=== PATIENT | female | born 1930 | race Caucasian/White ===

== ENCOUNTER 2017-01-01 14:30 | Emergency (ER) | payer MEDICARE, OTHER ==
[2017-01-01 14:44] VITALS: O2SAT 96
--- NOTE | 2017-01-01 14:57 | ERPHSYRPT ---
- History of Present Illness Time Seen by Provider: 01/01/17 14:47 Source: patient Exam Limitations: no limitations Patient Subjective Stated Complaint: swallowing difficulty Triage Nursing Assessment: states this morning she could swallow her small pills but is unable to swallow her bigger pills or food. denies vomiting 'it just feels like there is something stuck and not letting me swallow anything big '. no recent trauma. able to swallow spit today without diff. daughter in law states she had her esophagus stretched approx 5 yrs ago Physician History: This is an 86-year-old white female with history of macular degeneration diabetes hypercholesterolemia high blood pressure GERD who is legally blind She is brought by her daughter with complaint of difficulty swallowing for 2 weeks. She states she has had progressive problems with swallowing for 2 weeks this morning she had problems swallowing large pills and food she states she is however able to swallow small pills and water. She is not vomiting she has no chest pain. Past medical history includes macular degeneration, diabetes, hypercholesterolemia, GERD, patient is legally blind. She apparently has some problem with her left kidney. Past surgical history includes , cyst in her left breast.patient has had her esophagus dilated in the past. Timing/Duration: other (probable for swallowing for 2 weeks) Severity: moderate (some) Modifying Factors: Improves With: nothing Associated Symptoms: No nausea, No vomiting, No abdominal pain, No shortness of breath, No heartburn, No diaphoresis, No cough, No chills, No chest pain, No fever, No headaches, No loss of appetite, No malaise, No rash, No syncope, No seizure, No weakness Allergies/Adverse Reactions: pregabalin [From Lyrica] Allergy (Verified 01/01/17 14:44) sulfamethoxazole [From Bactrim] Allergy (Verified 01/01/17 14:44) trimethoprim [From Bactrim] Allergy (Verified 01/01/17 14:44) Hx Tetanus, Diphtheria Vaccination/Date Given: Yes Hx Influenza Vaccination/Date Given: No Hx Pneumococcal Vaccination/Date Given: No Immunizations Up to Date: Yes - Review of Systems Constitutional: No Fever, No Chills Eyes: No Symptoms Ears, Nose, & Throat: Other (trouble swallowing), No Ear Pain, No Ear Discharge , No Hearing Changes, No Tinnitus, No Nose Pain, No Nose Congestion, No Nose Discharge, No Sinus Drainage, No Epistaxis, No Mouth Pain, No Mouth Swelling, No Loose Teeth, No Throat Pain, No Throat Swelling, No Hoarse, No Painful Swallowing, No Snoring, No Stridor Respiratory: No Cough, No Dyspnea Cardiac: No Chest Pain, No Edema, No Syncope Abdominal/Gastrointestinal: No Abdominal Pain, No Nausea, No Vomiting, No Diarrhea Genitourinary Symptoms: No Dysuria Musculoskeletal: No Back Pain, No Neck Pain Skin: No Rash Neurological: No Dizziness, No Focal Weakness, No Sensory Changes Psychological: No Symptoms Endocrine: No Symptoms All Other Systems: Reviewed and Negative - Past Medical History Pertinent Past Medical History: Yes ENT History: Macular Degeneration, Other Cardiac History: High Cholesterol, Hypertension Endocrine Medical History: Diabetes Type II GI Medical History: GERD History: Other Other Medical History: legally blind. questionable area to lt kidney--being watched - Past Surgical History Past Surgical History: Yes Female Surgical History: Section Other Surgical History: lt kidney. cyst-rt breast - Social History Smoking Status: Never smoker Exposure to second hand smoke: No Drug Use: none Patient Lives Alone: No - Nursing Vital Signs Nursing Vital Signs: Initial Vital Signs Temperature 97.9 F Temperature Source Oral Pulse Rate 66 Respiratory Rate 16 Blood Pressure [] 143/63 Pain Intensity 0 - Physical Exam General Appearance: no apparent distress, alert Eye Exam: PERRL/EOMI, eyes nml inspection Ears, Nose, Throat Exam: normal ENT inspection, TMs normal, pharynx normal, moist mucous membranes Neck Exam: normal inspection, non-tender, supple, full range of motion Respiratory Exam: normal breath sounds, lungs clear, No respiratory distress Cardiovascular Exam: regular rate/rhythm, normal heart sounds, normal peripheral pulses Gastrointestinal/Abdomen Exam: soft, normal bowel sounds, No tenderness, No mass Back Exam: normal inspection, normal range of motion, No CVA tenderness, No vertebral tenderness Extremity Exam: normal inspection, normal range of motion, pelvis stable Neurologic Exam: alert, oriented x 3, cooperative, normal mood/affect, nml cerebellar function, nml station & gait, sensation nml, No motor deficits Skin Exam: normal color, warm, dry, No rash Lymphatic Exam: No adenopathy SpO2 Interpretation: normal (96%) SpO2: 96 Oxygen Delivery: Room Air - Radiology Exams Other X-ray Interpretation: Discussed w/ radiologist (esophagram: Small sliding hiatal hernia otherwise normal esophagram) Ordered Tests: Active Orders 24 hr Category Date Time Status BARIUM SWALLOW ESOPHOGRAM Stat Exams 01/01/17 15:04 Completed - Progress Progress: improved Progress Note: 01/01/17 16:09 This is an 81-year-old white female who is complaining of problems swallowing for 2 weeks. This morning she was able to swallow small pills and water but not large pills and was having problems swallowing her food. She states that she has a history of having her esophagus dilated in the past. Patient currently does not appear to be in any distress she is able to swallow liquids and is not having problems swallowing her sputum I discussed this with Dr. Waldron who is escalation engineer for Dr. Ferris. He recommended that we obtain an swallowing study. I went ahead and obtain an esophagram which was remarkable for a small sliding hiatal hernia otherwise negative esophagram. Will have patient's family contact Dr. Ferris's office in attempt to obtain an appointment for tomorrow afternoon with Dr. Ferris. - Departure Time of Disposition: 16:11 Departure Disposition: Home Clinical Impression: Swallowing disorder Condition: Fair Critical Care Time: No Referrals: JESSICA MUNGUIA [Primary Care Provider] - SHADI FERRIS [ACTIVE STAFF] - Additional Instructions: Return home. Clear fluids. Follow-up with Dr Munguia or Dr. Ferris tomorrow call his office today to arrange an appointment. Return for acute distress or for severe symptoms.
--- NOTE | 2017-01-01 15:36 | XRAY ---
Indication: Dysphagia for 2 weeks. Single contrast esophagram performed in AP, oblique, and lateral plane. Patient ingested barium without miss swallow or aspiration. Esophagus is normal in course and caliber without stricture, obstruction, filling defect, or mucosal abnormality. Barium freely emptied into the stomach. Small sliding hiatal hernia. No gastroesophageal reflux seen. At the end, patient ingested a barium tablet with water/wastewater engineer which freely emptied into the stomach. Impression: Small sliding hiatal hernia in a otherwise negative esophagram. Approximately 0.4 minute fluoroscopy used.
[2017-01-01 15:57] VITALS: BP 143/63; PULSE 66
== END 2017-01-01 16:23 | disposition home or self-care (01) ==
LOC: ED 14:30
DX: R13.19 Other dysphagia (principal)
CPT/HCPCS: 74220; 99283

== ENCOUNTER 2017-03-15 02:35 | Observation (INO) | payer MEDICARE, OTHER ==
--- NOTE | 2017-03-15 02:43 | ERPHSYRPT ---
- History of Present Illness Time Seen by Provider: 03/15/17 02:38 Source: EMS Exam Limitations: clinical condition Physician History: The patient is an 86-year-old for a code female brought in by ambulance from assisted care living at a local assisted where she was found in bed next her unresponsive during a routine check. She has not responded to voice commands or noxious stimulus. Timing/Duration: today Severity: severe Character of Deficits: other (unresponsive) Baseline/Normal Cognition: alert oriented x 3 Current Cognition: poor alertness (unresponsive) Allergies/Adverse Reactions: pregabalin [From Lyrica] Allergy (Verified 03/15/17 03:05) sulfamethoxazole [From Bactrim] Allergy (Verified 03/15/17 03:05) trimethoprim [From Bactrim] Allergy (Verified 03/15/17 03:05) Hx Tetanus, Diphtheria Vaccination/Date Given: Yes Hx Influenza Vaccination/Date Given: No Hx Pneumococcal Vaccination/Date Given: No - Review of Systems Constitutional: Other (unresponsive) Respiratory: Other (no respiratory effort) Neurological: Other (unresponsive) - Past Medical History Pertinent Past Medical History: Yes ENT History: Macular Degeneration, Other Cardiac History: High Cholesterol, Hypertension Endocrine Medical History: Diabetes Type II GI Medical History: GERD History: Other Other Medical History: legally blind. questionable area to lt kidney--being watched - Past Surgical History Past Surgical History: Yes Female Surgical History: Section Other Surgical History: lt kidney. cyst-rt breast - Social History Smoking Status: Never smoker Exposure to second hand smoke: No Drug Use: none Patient Lives Alone: No - Nursing Vital Signs Nursing Vital Signs: Initial Vital Signs Pulse Rate 48 Respiratory Rate 14 Blood Pressure [] 162/68 Pain Intensity 0 - Anthony Coma Scale Best Eye Response (Anthony): (1) no response Best Verbal Response (Anthony): (1) no verbal response Best Motor Response (Cutler): (1) no motor response Anthony Total: 3 - Physical Exam General Appearance: severe distress Eye Exam: bilateral eye: other (The right pupil is fully dilated and unresponsive to light. The left pupil is constricted and unresponsive to light. ) Cardiovascular: bradycardia SpO2 Interpretation: hypoxic - CT Exams Head CT Interpretation: Discussed w/radiologist (I discussed the findings of the head CT with the radiologist, Dr. Roland, who states this is one of the largest infant trauma parenchymal hemorrhages he has ever seen. This is a large intraparenchymal and subdural hemorrhage on the right with effacement of the right lateral ventricle and 2.5 cm midline shift to the left with effacement of the basilar cisterns.) Ordered Tests: Active Orders 24 hr Category Date Time Status Deputy Administrator STAT Care 03/15/17 02:37 Active EKG-ER Only STAT Care 03/15/17 02:37 Active Ugalde [Catheter-Blodgett Ugalde] STAT Care 03/15/17 03:22 Active IV Insertion STAT Care 03/15/17 02:37 Active IV Insertion-2nd Peripheral STAT Care 03/15/17 02:37 Active CERVICAL SPINE WO CONTRAST [CT] Stat Exams 03/15/17 02:46 Taken HEAD WITHOUT CONTRAST [CT] Stat Exams 03/15/17 02:37 Taken ABG [ARTERIAL BLOOD GASES] Stat Lab 03/15/17 03:16 Completed CBC W DIFF Stat Lab 03/15/17 02:40 Completed CMP Stat Lab 03/15/17 02:40 Completed Medication Summary Discontinued Medications Generic Name Dose Route Start Last Admin Trade Name Freq PRN Reason Stop Dose Admin Acetaminophen Confirm 03/15/17 03:09 Tylenol 325 Mg Administered 03/15/17 03:10 Dose 650 mg .ROUTE .STK-MED ONE Acetaminophen Confirm 03/15/17 03:11 Tylenol 325 Mg Administered 03/15/17 03:12 Dose 325 mg .ROUTE .STK-MED ONE Sodium Chloride Confirm 03/15/17 02:58 Sodium Chloride 0.9% 1000 Ml Administered 03/15/17 02:59 Dose 1,000 mls @ ud .ROUTE .STK-MED ONE Sodium Chloride Confirm 03/15/17 03:10 Sodium Chloride 0.9% 1000 Ml Administered 03/15/17 03:11 Dose 1,000 mls @ ud .ROUTE .STK-MED ONE Lab/Rad Data: Laboratory Result Diagrams 03/15/17 02:40 03/15/17 02:40 Laboratory Results 03/15/17 03/15/17 03/15/17 Range/Units 03:16 02:40 02:40 WBC 6.6 (4.0-10.5) K/mm3 RBC 3.65 L (4.1-5.4) M/mm3 Hgb 11.8 L (12.0-16.0) gm/dl Hct 34.1 L (35-47) % MCV 93.4 (78-100) fl MCH 32.3 H (26-32) pg MCHC 34.6 (32-36) g/dl RDW 12.3 (11.5-14.0) % Plt Count 217 (150-450) K/mm3 MPV 11.2 H (6-9.5) fl Gran % 35.9 L (36.0-66.0) % Lymphocytes % 49.8 H (24.0-44.0) % Monocytes % 10.1 (0.0-12.0) % Eosinophils % 3.9 (0.00-5.0) % Basophils % 0.3 (0.0-0.4) % Basophils # 0.02 (0-0.4) Puncture Site LEFT RADIAL pCO2 29 L (35-45) mmHg pO2 82 (75-100) mmHg Base Excess 0.9 (-2.0-2.0) O2 Saturation 95.8 (94-100) g/dF ABG pH 7.51 H (7.35-7.45) ABG HCO3 23.1 (22-28) ABG O2 Sat (Measured) 98.1 (95-100) % Obdulio Test YES A-a Gradient 595 a/A Ratio 0.12 Hemoglobin 12.2 Carboxyhemoglobin 1.2 (0.0-6.9) % THgb Methemoglobin 1.1 L (1.4-1.5) % Temperature 37.0 C POC O2 Flow Rate 100 % Sodium 142 (136-145) mEq/L Potassium 2.9 L* 3.2 L (3.5-5.1) mEq/L Chloride 105 (98-107) mEq/L Carbon Dioxide 24.1 (21-32) mEq/L Anion Gap 16.0 H (5-15) MEQ/L BUN 18 (9-20) mg/dL Creatinine 0.85 (0.55-1.30) mg/dl Estimated GFR > 60 ML/MIN Glucose 243 H (70-110) MG/DL Calcium 8.8 (8.5-10.1) mg/dL Total Bilirubin 0.60 (0.2-1.0) mg/dL AST 24 (15-37) U/L ALT 24 (12-78) U/L Alkaline Phosphatase 60 (46-116) U/L Serum Total Protein 6.5 (6.4-8.2) gm/dL Albumin 3.5 (3.4-5.0) g/dL - Progress Progress: re-examined Progress Note: 03/15/17 03:20 I spoke with the patient's son, Pelon Siddiqui, who states he has papers giving him power of attorney law clerk. I told him the seriousness of the situation and that his mother has had a fatal hemorrhagic stroke. He wanted his father, Saul, to be involved in the decision. I called Saul and he told me that he would leave the decision completely up to his son, Pelon. I called a he back and Pelon said to cease efforts and let her pass away. Counseled pt/family regarding: rad results - Departure Time of Disposition: 03:30 Departure Disposition: Clinical Impression: Hemorrhagic stroke Condition: Critical Care Time: No Referrals: SHADI BESS [Primary Care Provider] - Additional Instructions: Shira had a large hemorrhagic stroke that is fatal. Cesia, her son who has POA, is on his way from his home with his and has asked Shira to be left on ventilation until he arrives at which time ventilation will be stopped.
[2017-03-15] MEDS ORDERED: Sodium Chloride 0.9% 1000 ML 1,000 ML ONE (02:58)
[2017-03-15 03:06] LABS: BASOPHIL % 0.3 % (0.0-0.4); Eosinophil % 3.9 % (0.00-5.0); Granulocytes % 35.9 % (36.0-66.0); Lymphocytes % 49.8 % (24.0-44.0); Mean Cell Volume 93.4 fl (78-100); Mean Corpuscular Hemoglobin 32.3 pg (26-32); Mean Platelet Volume 11.2 fl (6-9.5); Monocytes % 10.1 % (0.0-12.0); Platelet Count 217 K/mm3 (150-450); Red Blood Count 3.65 M/mm3 (4.1-5.4); Red Cell Distribution Width 12.3 % (11.5-14.0); White Blood Count 6.6 K/mm3 (4.0-10.5)
[2017-03-15] MEDS ORDERED: TYLENOL 325 MG ONE ×2 (03:09→03:11)
[2017-03-15] MEDS ORDERED: Sodium Chloride 0.9% 1000 ML 0 ML ONE (03:10)
[2017-03-15 03:16] LABS: A-aADO2 595; ARTERIAL BLD GAS O2 SATURATION 98.1 % (95-100); ARTERIAL BLOOD GAS BASE EXCESS 0.9 (-2.0-2.0); ARTERIAL BLOOD GAS FIO2 100 %; ARTERIAL BLOOD GAS PO2 82 mmHg (75-100); ARTERIAL BLOOD GAS pH 7.51 (7.35-7.45)
[2017-03-15 03:17] LABS: ALLEN TEST OK? YES
[2017-03-15 03:25] LABS: ALBUMIN 3.5 g/dL (3.4-5.0); ALKALINE PHOSPHATASE 60 U/L (46-116); BLOOD UREA NITROGEN 18 mg/dL (9-20); CHLORIDE 105 mEq/L (98-107); Carbon Dioxide 24.1 mEq/L (21-32); Glucose 243 MG/DL (70-110); Potassium 3.2 mEq/L (3.5-5.1); SGOT/AST 24 U/L (15-37); SGPT/ALT 24 U/L (12-78); SODIUM 142 mEq/L (136-145); Total Protein 6.5 gm/dL (6.4-8.2)
[2017-03-15] MEDS ORDERED: Sodium Chloride 0.9% 1000 ML 1,000 ML IV SCH (04:30)
[2017-03-15] MEDS ORDERED: MORPHINE SULFATE 2 MG INJ IV PRN (07:02)
--- NOTE | 2017-03-15 08:18 | XRAY ---
Indication: Unresponsive. Fall. Multiple contiguous axial images obtained through the head without contrast. Comparison: None There is large right cerebral hemisphere acute parenchymal hemorrhage measuring at least 9.0 x 7.6 x 5.6 cm. Also small right frontotemporal acute subdural hematoma measuring 9 mm in thickness and at least 4.5 cm in AP dimension. Significant mass effect with 2.5 cm midline shifting. No hydrocephalus. Right parietal 1 cm calcified meningioma. Bony calvarium intact. Tiny fluid leveling in the right sphenoid sinus. Mastoid air cells are clear. Impression: 1. Large right cerebral acute parenchymal hemorrhage with small right frontotemporal acute subdural hematoma with mass effect/midline shift. 2. Incidental right parietal calcified meningioma and minimal paranasal sinus disease. Comment: Preliminary interpretation was made by [facility]. No critical discrepancy. CTDI 50.80
--- NOTE | 2017-03-15 08:20 | XRAY ---
Indication: Unresponsive. Fall. Multiple contiguous axial images obtained through the cervical spine. Sagittal and coronal reformatted images obtained. Comparison: None CT head reported separately. Axial images negative for acute fracture, suspicious bony lesions, or spinal canal stenosis. There is mild multilevel degenerative endplate spurring and mild bilateral degenerative facet hypertrophy. Sagittal and coronal reformatted images demonstrates lordotic straightening, positional versus paraspinal muscular spasm. C5-C6 degenerative disc space loss. No acute compression fracture, subluxation, or jumped facet. Normal-appearing craniocervical junction. Visualized noncontrasted soft tissues demonstrates moderate carotid calcifications bilaterally and partially visualized endotracheal tube. Lung apices clear. Impression: 1. Negative acute fracture/subluxation. Lordotic straightening, positional versus paraspinal spasm. 2. Multilevel degenerative changes and endotracheal tube in situ. Comment: Preliminary interpretation was made by [facility]. No discrepancy. CTDI 104.52
[2017-03-15 08:50] VITALS: BP 175/87; PULSE 92; O2SAT 92
--- NOTE | 2017-03-15 09:41 | PCM.SSS ---
History of Present Illness - Chief Complaint Chief Complaint: Massive Hemorrhagic stroke History of Present Illness: is a 86 year old female who was brought to ER by ambulance after she was found unresponsive at home. She was found to have a massive intracranial hemorrhage, was extubated in ER, pupils were fixed and dilated and she remained unresponsive. Family decided for comfort care only as there seemed very little chance of any meaningful recover. at time of exam family is not present, went to get breakfast. upon my arrival to the room patient was found to have just prior to my exam - Review of Systems All Other Systems: Unable due to condition Medications & Allergies Home Medications: Home Medication List Amlodipine Besylate 5 mg [Norvasc 5 mg] 5 mg PO DAILY 03/15/17 [History Confirmed 03/15/17] Ascorbic Acid 500 mg [Vitamin C 500 MG] 500 mg PO DAILY 03/15/17 [History Confirmed 03/15/17] Aspirin 81 mg PO DAILY 03/15/17 [History Confirmed 03/15/17] Calcium Carbonate/Vitamin D3 [Calcium 600 + Vit D Caplet] 1 each PO DAILY [History Confirmed 03/15/17] Donepezil HCl [Aricept] 10 mg PO DAILY 03/15/17 [History Confirmed 03/15/17] Fluvastatin Sodium [Lescol Xl] 80 mg PO DAILY 03/15/17 [History Confirmed ] Fluvastatin Sodium [Lescol] 5 mg PO DAILY 03/15/17 [History Confirmed 03/15/17] L.acidoph & Paracasei,B.lactis [Probiotic] 1 each PO DAILY 03/15/17 [History Confirmed 03/15/17] Levothyroxine Sodium 100 Mcg [Synthroid 100 Mcg] 100 mcg PO DAILY 03/15/17 [History Confirmed 03/15/17] Lutein/Zeaxanthin [Lutein-Zeaxanthin 25-5 mg Sfgl] 1 each PO HS 03/15/17 [ History Confirmed 03/15/17] Meclizine HCl 12.5 mg PO BID 03/15/17 [History Confirmed 03/15/17] Ramipril [Altace] 10 mg PO DAILY 03/15/17 [History Confirmed 03/15/17] Ubidecarenone/Vitamin E Mixed [[id number]-[id number] E 100 mg-10 Unit Sfg] 1 each PO HS [History Confirmed 03/15/17] Vit C/Rupesh AC/Lut/Copper/Znox [Preservision Lutein Softgel] 1 each PO DAILY [History Confirmed 03/15/17] Vitamin E Acetate [Vitamin E] 2,000 unit PO DAILY 03/15/17 [History Confirmed ] Allergies/Adverse Reactions: Allergies Allergy/AdvReac Type Severity Reaction Status Date / Time pregabalin [From Lyrica] Allergy Verified 03/15/17 03:05 sulfamethoxazole Allergy Verified 03/15/17 03:05 [From Bactrim] trimethoprim [From Bactrim] Allergy Verified 03/15/17 03:05 - Past Medical History Past Medical History: Yes ENT History: Macular Degeneration, Other Cardiac History: High Cholesterol, Hypertension Endocrine Medical History: Diabetes Type II GI Medical History: GERD History: Other Comment: legally blind. questionable area to lt kidney--being watched - Female History Hx Last Menstrual Period: na - Past Surgical History Past Surgical History: Yes Female Surgical History: Section Other Surgical History: lt kidney. cyst-rt breast - Social History Smoking Status: Never smoker Exposure to second hand smoke: No Alcohol: None Drug Use: none - Physical Exam Vital Signs: Vital Signs - 24 hr Temp Pulse Pulse Resp BP Pulse Ox 03/15/17 08:49 97.5 F 92 H 22 175/87 92 L 03/15/17 08:29 85 L 03/15/17 08:28 97.8 F 92 H 26 H 175/87 86 L 03/15/17 07:02 78 22 162/69 03/15/17 06:48 72 20 163/74 03/15/17 06:11 50 L 16 187/83 03/15/17 05:45 49 L 10 L 184/79 03/15/17 05:01 52 L 14 160/56 03/15/17 04:51 50 L 14 156/58 03/15/17 04:49 54 L 03/15/17 04:43 50 L 14 154/55 03/15/17 04:31 48 L 16 150/59 03/15/17 04:08 46 L 18 150/55 48 L 03/15/17 03:55 48 L 14 162/68 80 L 06/24/17 03:43 162/68 03/15/17 03:42 50 L 14 81 L 03/15/17 03:21 50 L 14 174/69 89 L 03/15/17 02:36 48 L 14 160/91 92 L Oxygen-Last 24 hours O2 Percentage 2 Liters = 28% O2 Percentage 2 Liters = 28% O2 Percentage 100% O2 Percentage 100% O2 Percentage 100% O2 Percentage 100% O2 Percentage 100% O2 Percentage 100% General Appearance: other (, pale) Eye Exam: other (fixed and unresponsive) Respiratory Exam: other (no respiratory effort) Cardiovascular Exam: other (no pulse) Skin Exam: mottled Results - Other Procedures and Tests Respiratory Therapy 03/15/17 08:25 Oxygen OXYMASK-LPM 5% Assessment/Plan (1) Hemorrhagic stroke Current Visit: Yes Status: Acute Assessment & Plan: patient peacefully on med/surg floor Code(s): I61.9 - NONTRAUMATIC INTRACEREBRAL HEMORRHAGE, UNSPECIFIED Hospital Summary - Vitals & Intake/Output Vital Signs: Vital Signs Temperature 97.5 F 03/15/17 08:49 Pulse Rate 92 H 03/15/17 08:49 Respiratory Rate 22 03/15/17 08:49 Blood Pressure 175/87 03/15/17 08:49 O2 Sat by Pulse Oximetry 92 L 03/15/17 08:49 Oxygen-Last Documented O2 Percentage 2 Liters = 28% Intake & Output: Intake & Output 03/12/17 03/13/17 03/14/17 03/15/17 11:59 11:59 11:59 11:59 Intake Total 0 Balance 0 Weight 68.946 kg - Lab Result Diagrams: 03/15/17 02:40 03/15/17 02:40 - Procedures and Test Procedures and Tests throughout Hospitalization: Therapy Orders & Screens 03/15/17 08:25 Oxygen OXYMASK-LPM 5% Comment: Diagnosis: massive hemorrhagic stroke - Discharge Disposition: Condition: Prescriptions: No Action Ramipril [Altace] 10 mg PO DAILY Levothyroxine Sodium 100 Mcg [Synthroid 100 Mcg] 100 mcg PO DAILY Amlodipine Besylate 5 mg [Norvasc 5 mg] 5 mg PO DAILY Fluvastatin Sodium [Lescol Xl] 80 mg PO DAILY Donepezil HCl [Aricept] 10 mg PO DAILY L.acidoph & Paracasei,B.lactis [Probiotic] 1 each PO DAILY Vitamin E Acetate [Vitamin E] 2,000 unit PO DAILY Ubidecarenone/Vitamin E Mixed [[id number]-Pvr E 100 mg-10 Unit Sfg] 1 each PO HS Lutein/Zeaxanthin [Lutein-Zeaxanthin 25-5 mg Sfgl] 1 each PO HS Ascorbic Acid 500 mg [Vitamin C 500 MG] 500 mg PO DAILY Vit C/Rupesh AC/Lut/Copper/Znox [Preservision Lutein Softgel] 1 each PO DAILY Aspirin 81 mg PO DAILY Calcium Carbonate/Vitamin D3 [Calcium 600 + Vit D Caplet] 1 each PO DAILY Meclizine HCl 12.5 mg PO BID Fluvastatin Sodium [Lescol] 5 mg PO DAILY Additional Instructions: Shira had a large hemorrhagic stroke that is fatal. Pelon, her son who has POA, is on his way from his home with his and has asked Shira to be left on ventilation until he arrives at which time ventilation will be stopped. Follow up with: SHADI BESS [ACTIVE STAFF] -
== END 2017-03-15 09:25 | disposition expired ==
LOC: ED 02:35 → MED SURG 07:40
PROVIDERS: ADMIT Family Medicine; ATTEND Family Medicine
DX: I61.9 Nontraumatic intracerebral hemorrhage, unspecified (principal); I10 Essential (primary) hypertension; E78.00 Pure hypercholesterolemia, unspecified; K21.9 Gastro-esophageal reflux disease without esophagitis
CPT/HCPCS: 36000; 36415; 36600; 51702; 70450; 72125; 80053; 82375; 82803; 85025; 93005; 93041; 94002; 94760; 96360; 96361; 99285; G0378; A9270-GY